=== PATIENT | female | born 1990 | race Hispanic/Latino ===

== ENCOUNTER 2017-07-28 19:59 | Emergency (ER) | payer BC ==
--- NOTE | 2017-07-28 20:21 | C.PDOC ---
History Of Present Illness Patient brought in due to being depressed and possible suicidal ideation. Patient states she was talking to a family caseworker at [facility] and was subsequently brought to the ER. Patient presently denies any suicidal ideation. Denies somatic complaints. Time Seen by Provider: 07/28/17 20:20 Chief Complaint (Nursing): Psychiatric Evaluation History Per: Patient History/Exam Limitations: no limitations Onset/Duration Of Symptoms: Days Current Symptoms Are (Timing): Still Present Suicide/Self Injury Attempted (Context): None Modifying Factor(s): None Severity: Moderate Pain Scale Rating Of: 0 Associated Symptoms: Depression Involuntary Hold By: None Recent travel outside of the [place]: No Additional History Per: Patient Past Medical History Reviewed: Historical Data, Nursing Documentation, Vital Signs Vital Signs: Last Vital Signs Temp 98 F 07/28/17 20:11 Pulse 96 H 07/28/17 20:11 Resp 18 07/28/17 20:11 BP 140/96 H 07/28/17 20:11 Pulse Ox 100 07/28/17 20:29 - Medical History PMH: No Chronic Diseases, Depression Surgical History: No Surg Hx, Tonsillectomy Family History: States: Unknown Family Hx - Social History Hx Alcohol Use: Yes Hx Substance Use: No - Immunization History Hx Tetanus Toxoid Vaccination: No Hx Influenza Vaccination: No Hx Pneumococcal Vaccination: No Review Of Systems Constitutional: Negative for: Fever, Chills, Sweats Eyes: Negative for: Pain, Vision Change, Conjunctivae Inflammation Cardiovascular: Negative for: Chest Pain, Palpitations, Orthopnea, Paroxysmal Noc. Dyspnea Respiratory: Negative for: Cough, Shortness of Breath, Hemoptysis Gastrointestinal: Negative for: Nausea, Vomiting, Abdominal Pain Musculoskeletal: Negative for: Neck Pain, Shoulder Pain, Arm Pain Skin: Negative for: Rash, Lesions Neurological: Negative for: Weakness, Numbness, Incoordination, Change in Speech , Confusion, Seizures, Altered Mental Status Psych: Positive for: Depression Physical Exam - Physical Exam Appears: Non-toxic Skin: Normal Color Head: Atraumatic Nose: Normal Oral Mucosa: Moist, No Dry Tongue: Normal Appearing, No Swelling Lips: Normal Appearing Teeth: Normal Dentition Gingiva: Normal Appearing Throat: Normal Neck: Normal Cardiovascular: Rhythm Regular, No Murmur Respiratory: Normal Breath Sounds, No Rales, No Rhonchi, No Wheezing Gastrointestinal/Abdominal: Normal Exam Back: Normal Inspection Extremity: Normal ROM Neurological/Psych: Oriented x3, Normal Speech, Normal Cognition, Normal Cranial Nerves, Normal Motor, Normal Sensation, Normal Reflexes Gait: Steady ED Course And Treatment - Laboratory Results Result Diagrams: 07/28/17 20:27 07/28/17 20:27 O2 Sat by Pulse Oximetry: 100 (RS) Pulse Ox Interpretation: Normal Medical Decision Making Medical Decision Making: Plans: * Blood labs * UA Disposition Discussed With DrFederica: Marita Navarro Counseled Patient/Family Regarding: Diagnosis - Disposition Referrals: Non [facility] Provider, [Non-Staff] - Disposition: HOME/ ROUTINE Disposition Time: 23:15 Condition: STABLE Instructions: Depression (DC) Forms: [employer] (Azerbaijani) - POA Present On Arrival: None - Clinical Impression Clinical Impression: Depression - Scribe Statement The provider has reviewed the documentation as recorded by the Scribe Roscoe hamilton All medical record entries made by the Scribe were at my direction and personally dictated by me. I have reviewed the chart and agree that the record accurately reflects my personal performance of the history, physical exam, medical decision making, and the department course for this patient. I have also personally directed, reviewed, and agree with the discharge instructions and disposition.
[2017-07-28 20:25] VITALS: RESP 18
[2017-07-28 20:37] LABS: BASO % 0.5 % (0.0-2.0); EOS # 0.1 K/uL (0.0-0.7); EOS % 1.6 % (0.0-4.0); HEMATOCRIT 38.2 % (34.0-47.0); LYMPH # 2.8 K/uL (1.0-4.3); LYMPH % 30.5 % (20.0-40.0); MEAN CELL VOLUME 91.1 fL (81.0-99.0); MEAN CORPUSCULAR HEMOGLOBIN 31.2 pg (27.0-31.0); MEAN CORPUSCULAR HGB CONC 34.2 g/dL (33.0-37.0); MEAN PLATELET VOLUME 7.3 fL (7.2-11.7); MONO # 0.6 K/uL (0.0-0.8); MONO % 6.4 % (0.0-10.0); NRBC % 0.1 % (0.0-2.0); RED CELL DISTRIBUTION WIDTH 13.3 % (11.5-14.5); WHITE BLOOD COUNT 9.1 K/uL (4.8-10.8)
[2017-07-28 20:38] LABS: CHLORIDE 99 mmol/L (98-107)
[2017-07-28 20:39] LABS: POTASSIUM 3.9 mmol/L (3.6-5.2); SODIUM 135 mmol/L (132-148)
[2017-07-28 20:41] LABS: ALB/GLOB RATIO 1.4 (1.0-2.1); ALKALINE PHOSPHATASE 57 U/L (38-126); AST/SGOT 93 U/L (14-36); BILIRUBIN,TOTAL 0.8 mg/dL (0.2-1.3); CARBON DIOXIDE 24 mmol/L (22-30); GFR AFRICAN-AMERICAN > 60; TOTAL PROTEIN 7.7 g/dL (6.3-8.3)
[2017-07-28 20:42] LABS: ALCOHOL SERUM < 10 mg/dl (0-10); ALT/SGPT 38 U/L (9-52); BLOOD UREA NITROGEN 16 mg/dL (7-17); CALCIUM 9.1 mg/dl (8.6-10.4); GLUCOSE,RANDOM 84 mg/dL (65-105)
[2017-07-28 20:50] LABS: RBC URINE 5 /hpf (0-3); URINE BACTERIA OCC (<OCC); URINE BILIRUBIN NEGATIVE (NEGATIVE); URINE BLOOD 1+ (NEGATIVE); URINE COLOR Yellow (YELLOW); URINE GLUCOSE (UA) NORMAL (Normal); URINE KETONE NEGATIVE (NEGATIVE); URINE LEUKOCYTE ESTERASE NEG Leu/uL (Negative); URINE PROTEIN NEGATIVE (NEGATIVE); URINE UROBILINOGEN NORMAL mg/dL (0.2-1.0); WBC URINE 2 /hpf (0-5)
[2017-07-28 23:22] VITALS: BP 126/74; PULSE 78; TEMP 98.2; O2SAT 99
== END 2017-07-28 23:22 | disposition home or self-care (01) ==
LOC: C.ER 19:59
DX: F32.9 Major depressive disorder, single episode, unspecified (principal)
CPT/HCPCS: 80053; 81001; 84703; 85025; 99285; G0480